=== PATIENT | female | born 1990 | race Caucasian/White ===

== ENCOUNTER 2021-07-19 20:05 | Outpatient (CLI) | payer OTHER, SELFPAY ==
[2021-07-19 20:05] VITALS: RESP 16; BMI 37.0
[2021-07-19 20:17] VITALS: BP 132/77; PULSE 80
[2021-07-19 20:32] VITALS: BP 118/72; PULSE 98
[2021-07-19 20:47] VITALS: BP 108/62; PULSE 93
== END 2021-07-19 21:00 | disposition home or self-care (01) ==
LOC: OPOB 20:13 → OBGYN 20:15
PROVIDERS: Visit Provider Family Medicine
DX: O26.899 Other specified pregnancy related conditions, unspecified trimester (principal); Z3A.00 Weeks of gestation of pregnancy not specified
CPT/HCPCS: 59025

== ENCOUNTER 2021-07-23 12:16 | Inpatient (IN) | payer OTHER, SELFPAY ==
[2021-07-22] VITALS (42 sets, daily range): BP systolic 101–146; BP diastolic 55–96; PULSE 64–113; RESP 18–20; TEMP 36.6–36.9; O2SAT 97–100; BMI 37.9
[2021-07-22] MEDS: dextrose 5%-lactated ringers 1,000 ML 125 ML IV (15:31)
[2021-07-22] MEDS: oxytocin 30 UNIT/500 ML BAG IV (15:31)
[2021-07-22 15:45] LABS: Basophils % 0.2 %; Eosinophils # 0.1 10^3/uL (0.0-0.8); Eosinophils % 0.9 %; Hematocrit 34.6 % (37.0-47.0); Hemoglobin 11.7 g/dL (11.5-15.3); Lymphocytes # 1.5 10^3/uL (0.8-4.8); Lymphocytes % 11.3 %; Mean Corpuscular HGB Conc 33.8 g/dL (30.0-36.0); Mean Corpuscular Hemoglobin 30.7 pg (28.0-34.0); Mean Corpuscular Volume 90.8 fl (81-99); Mean Platelet Volume 10.9 fL (7.4-10.4); Monocytes % 7.4 %; Neutrophils # 10.02 10^3/uL (1.8-7.7); Neutrophils % 77.9 %; Nucleated Red Blood Cells % 0 %; Platelet Count 233 10^3/cmm (130-400); Red Blood Count 3.81 10^6/uL (4.1-5.3); Red Cell Distribution Width 13.2 % (12.1-15.1); White Blood Count 12.9 10^3/uL (4.0-10.0)
[2021-07-22] MEDS: lactated ringers 1,000 ML 999 ML IV ×2 (18:21→19:33)
--- NOTE | 2021-07-22 18:25 | ANES.PREANE2 ---
Pre-Anesthetic Assessment Height/Weight: Height 1.63 m Weight 100.244 kg Temp Pulse Resp BP 97.9 F 72 20 H 113/64 07/22/21 15:35 07/22/21 18:07 07/22/21 14:56 07/22/21 18:07 Preop Diagnosis: labor pain epidural Was Beta Cody taken within 24 hours: N/A Was Clonidine taken within 24 hours: N/A Social No alcohol and No tobacco Exam alert, oriented x 3, clear to auscultation bilaterally and regular rate & rhythm Airway Submandibular: within normal limits Cervical ROM: within normal limits Mallampati: Class II Dentition: full Pulmonary None reported CV/HEM None reported None reported Hepatic None reported GI None reported Metabolic None reported Musc/skel None reported Neuropsych None reported Anesthetic Plan ASA status: 2 Anesthesia: Regional (specify below) Risk of > 500 ml blood loss (7ml/kg in children): No Medications/Allergies Home Medications Medication Instructions Recorded Confirmed Last Taken Type vit no.133-ferrous tab PO 07/22/21 07/22/21 08:00 History fumarate 28 mg-folic acid 800 mcg tablet () Allergies Allergy/AdvReac Type Severity Reaction Status Date / Time No Known Allergies Allergy Verified 07/22/21 15:32 Current Medications Generic Name Dose Route Start Last Admin Trade Name Freq PRN Reason Stop Dose Admin Oxytocin 30 unit in 500 mls @ 1 mls/hr 07/22/21 15:00 07/22/21 17:46 Pitocin IV 20 milliunit/min .Q24H JESUS 20 mls/hr Titration Protocol 1 MILLIUNIT/MIN Dextrose/Lactated Ringer's 1,000 mls @ 125 mls/hr 07/22/21 15:00 07/22/21 15:31 Dextrose 5%-Lactated Ringers IV 125 mls/hr .Q8H JESUS Administration Ropivacaine 200 mg in 100 mls @ 13 mls/hr 07/22/21 17:45 07/22/21 18:21 Naropin Premix EPIDURAL 13 mls/hr .Q7H42M JESUS Administration Lactated Ringer's 1,000 mls @ 999 mls/hr 07/22/21 17:45 07/22/21 18:21 Lactated Ringers IV 999 mls/hr .Q1H1M PRN Administration See label comments PFSH Anesthesia Female Reproductive History : 2 Data Anesthesia : 07/22/21 15:20 Short CBC 07/22/21 Range/Units 15:20 WBC 12.9 H (4.0-10.0) 10^3/uL Hgb 11.7 (11.5-15.3) g/dL Hct 34.6 L (37.0-47.0) % MCV 90.8 (81-99) fl Plt Count 233 (130-400) 10^3/cmm Neut % (Auto) 77.9 % Neut # (Auto) 10.02 H (1.8-7.7) 10^3/uL Cardiac Studies: No Data to Display
--- NOTE | 2021-07-22 19:16 | P.ANES_ITS ---
Anesthesia Procedures Procedure/Date: 07/22/21 epidural Procedure Narrative: Initial epidural did show signs on blood in tubing when inserted. confirmed intravascular with test dose. epidural removed and another attempt was made at 1 level above initial atrempt. epidural complete, bolus given, epidural pump initiated with BUSINESS REPORTING DEVELOPER education given, vitals taken during procedure using OBIX system and satisfactory throughout, patient admits to decrease pain, report of procedure to OB RN Epidural: Time Out Performed: Yes Consents Signed: Procedure Consent Consent: requested by attending/covering physician, from patient, risks and benefits reviewed and patient agrees to proceed Lumbar Level: L2-L3 Epidural position: sitting Epidural procedure: sterile prep of area, 1% lidocaine to numb the area (6 mL), 18 g needle, negative for paresthesia passed, neg for paresthesia, test dose given, 1.5% xylocaine 1:200k epi (7 mL), 0.2% Ropivacaine bolus ml (5 mL), placed PCEA, no systemic response, sterile dressing applied, L.U.D. no apparent complications and 0.2% Ropiavacaine @ mls/hr (13 mL/hr)
[2021-07-22] MEDS: dextrose 5%-lactated ringers 1,000 ML 105 ML IV (20:06)
[2021-07-23] VITALS (72 sets, daily range): BP systolic 94–146; BP diastolic 52–84; PULSE 66–113; RESP 16; TEMP 35.8–36.9; O2SAT 97–98
[2021-07-23] MEDS: dextrose 5%-lactated ringers 1,000 ML 999 ML IV (04:28)
--- NOTE | 2021-07-23 10:38 | PM.OPHPUD ---
Labor & Delivery H&P Update Date of Procedure: July 23, 2021 Date H&P Performed: 07/18/21 Admission Diagnosis: at 39 w 2d gestation induced hypertension, late onset Preop diagnosis: labor pain Other information: This is a 30-year-old G2, P1 at 39 weeks 2 days gestation who was admitted for induction secondary to elevated blood pressure. She was seen in the office for routine follow-up earlier this week and was noted to have repeat blood pressures of 150/90. Since she was already term, decision was made to go ahead and proceed with induction. Her induction was initially delayed due to staffing shortages. Her NST was reactive and her blood pressures on labor and delivery were less than 140/90 so she was sent home to await availability. Then there was an inclement weather delay due to ice. Her cervix was favorable for induction so she was started on high-dose Pitocin. Expectant management.
--- NOTE | 2021-07-23 10:43 | P.PN_ITS ---
CIVIL DIVISION COMMANDER DEPUTY SHERIFF Subjective Subjective: Interval history: This is a 30-year-old G2, P1 at 39 weeks 3 days gestation who is here for induction secondary to -induced hypertension. Her highest pressure here has been 146/77. She has not required antihypertensives. Her labor has progressed a little slowly. She is on 30 units of Pitocin and her contractions palpate only mild. Hopefully with her membranes ruptured things will begin to fish bait picker. She has been comfortable with an epidural. Labor: Station: -2 Amniotic Membrane Status: Intact Monitor Mode: External Contraction Pattern: Irregular Status: Category I Vitals/I&O/Wt Last Vital Signs Temp 97.5 F L 07/23/21 06:22 Pulse 99 07/23/21 10:34 Resp 20 H 07/22/21 14:56 BP 126/63 07/23/21 10:34 Pulse Ox 98 07/22/21 19:49 07/22/21 07/23/21 07/23/21 22:59 06:59 14:59 Intake Total 2161.550 / 2161.550 1481.783 / 3643.333 Output Total 1400 / 1400 Balance 2161.550 / 2161.550 81.783 / 2243.333 Weight last 48 hrs Weight 100.244 kg Weight 100.244 kg Physical Exam Narrative: Sitting up in bed pupils equal round reactive to light, extraocular movements intact, abdomen soft nontender, generalized edema, cervix 7 cm/75% effaced -2 station. Artificial rupture of membranes was easily performed digitally with a copious amount of clear fluid. heart tones were reassuring. Urinary Catheter Management: Hairston: Cath Placed During This Visit: yes Reason for Continuing Indwelling Catheter: Required Immobilization for Trauma or Surgery or Anesthesia Urinary Catheter Date of Insertion: 07/22/21 Urinary Catheter Time of Insertion: 19:15 Data : 07/22/21 15:20 A&P Assessment and plan (1) -induced hypertension in third trimester: Status: Acute (2) Active labor at term: Continue expectant management Status: Acute Attestations Medical Necessity Statement*: Expectant management of active labor and delivery Coding Level of Care Code Acute Superintendent Construction for Agnes Kessler Diagnoses -induced hypertension in third trimester O13.3 Active labor at term
[2021-07-23] MEDS: oxytocin 30 UNIT/500 ML BAG 600 UNIT IV (15:07)
[2021-07-23] MEDS: miSOPROStol 200 mcg Tablet 800 MCG PR (15:07)
--- NOTE | 2021-07-23 15:34 | P.PCNOB_ITS ---
Delivery Note: Date of delivery: July 23, 2021 Delivery: This is a 30 at 39 weeks 2 days gestation who presented for induction secondary to -induced hypertension. Her cervix was favorable and she was started on Pitocin. She received an epidural for pain management. Despite 30 units of Pitocin and multiple position changes, the infant remained ballotable overnight. Rupture of membranes was performed when she was 7 cm and - 2 station. A copious amount of clear fluid resulted. She then progressed quickly and had a normal spontaneous vaginal delivery of a viable female weight 3550 g, 7 pounds 14 ounces over an intact perineum. The infant was suctioned at delivery and placed on the mother's chest. The cord was clamped and cut. The placenta was delivered grossly intact and normal to inspection. There was a significant amount of uterine bleeding so mother was given 800 mcg of Cytotec rectally. She responded well to fundal pressure and Cytotec. She had a second-degree perineal laceration that was sutured using 3-0 chromic. Mother and infant were doing well after delivery. Note: Not long before delivery nursing went to check the patient and found her fully inflated Hairston bulb laying in the bed. At the time of delivery there was no active urethral bleeding. The periurethral tissue was very edematous and purple. Clear urine was expressed with just delivery of the placenta. When pt was receiving fundal massage, and at least 150 ML of clear urine was expressed. A&P Assessment and plan (1) (normal spontaneous vaginal delivery): Routine care Status: Acute (2) -induced hypertension in third trimester: Status: Acute (3) Trauma of urethra: Monitor urine output Status: Acute Coding Level of Care Code Acute Hearing Aid Consultant for Chg Fwd Diagnoses (normal spontaneous vaginal delivery) O80 -induced hypertension in third trimester O13.3 Trauma of urethra S37.30XA
[2021-07-23] MEDS: benzocaine-menthol 78 gm Canister 1 SPRAY TOPICAL (20:54)
[2021-07-23] MEDS: ibuprofen 800 mg tablet PO (20:54)
[2021-07-23] MEDS: docusate sodium 100 mg Capsule PO (20:54)
[2021-07-23] MEDS: acetaminophen 325 mg Tablet 650 MG PO (23:01)
[2021-07-24 00:30] VITALS: BP 109/70; PULSE 75; TEMP 36.7; O2SAT 98
[2021-07-24 04:10] LABS: Hematocrit 28.5 % (37.0-47.0); Hemoglobin 9.6 g/dL (11.5-15.3); Mean Corpuscular HGB Conc 33.7 g/dL (30.0-36.0); Mean Corpuscular Hemoglobin 30.8 pg (28.0-34.0); Mean Corpuscular Volume 91.3 fl (81-99); Mean Platelet Volume 10.7 fL (7.4-10.4); Platelet Count 202 10^3/cmm (130-400); Red Blood Count 3.12 10^6/uL (4.1-5.3); Red Cell Distribution Width 13.2 % (12.1-15.1); White Blood Count 18.1 10^3/uL (4.0-10.0)
[2021-07-24 04:58] VITALS: BP 116/63; PULSE 68; TEMP 36.7; O2SAT 97
[2021-07-24] MEDS: ibuprofen 800 mg tablet PO ×2 (09:34→15:13)
[2021-07-24] MEDS: docusate sodium 100 mg Capsule PO (09:35)
[2021-07-24 09:50] VITALS: BP 121/71; PULSE 88; RESP 18; TEMP 36.3; O2SAT 96
--- NOTE | 2021-07-24 14:30 | PM.DCS ---
Discharge Providers Date of Admission: 07/23/21 12:16 Date of Discharge: July 24, 2021 Attending Provider at Admission: Michelle Mcguire MD Attending Provider at Discharge: Michelle Mcguire MD Diagnoses at Discharge Discharge Diagnosis (1) (normal spontaneous vaginal delivery): Status: Acute (2) -induced hypertension in third trimester: Status: Acute (3) Trauma of urethra: Status: Acute Reason for Visit Reason for Visit: Induction Hospital Course Hospital Course This is a 30-year-old G2 now P2 who was admitted for induction secondary to -induced hypertension. She had a normal spontaneous vaginal delivery of a viable female . She had some urethral trauma since the Hairston bulb was pushed out by the 's head descending (this was prior to pushing). Her urine output was monitored and was excellent. She did well and on day #1 she was ambulating, tolerating a regular diet, had no pain and was comfortable with discharge home. Physical Exam Narrative: Alert and oriented, sitting in bed breast-feeding, pupils equal round reactive to light, extraocular movements intact, heart regular rate and rhythm, lungs clear to auscultation bilaterally, abdomen soft and nontender, extremities have 1+ edema but no calf tenderness. Urinary Catheter Management: Hairston: Cath Placed During This Visit: yes, but has since been removed by the nurse Reason for Continuing Indwelling Catheter: Decision to DC Catheter Urinary Catheter Date of Insertion: 07/22/21 Urinary Catheter Time of Insertion: 19:15 Date Urinary Catheter Removed: 07/23/21 Time Urinary Catheter Discontinued: 13:30 Discharge Data Studies Completed and Pending Laboratory Results WBC 18.1 10^3/uL (4.0-10.0) H 07/24/21 04:00 RBC 3.12 10^6/uL (4.1-5.3) L 07/24/21 04:00 Hgb 9.6 g/dL (11.5-15.3) L 07/24/21 04:00 Hct 28.5 % (37.0-47.0) L 07/24/21 04:00 MCV 91.3 fl (81-99) 07/24/21 04:00 MCH 30.8 pg (28.0-34.0) 07/24/21 04:00 MCHC 33.7 g/dL (30.0-36.0) 07/24/21 04:00 RDW 13.2 % (12.1-15.1) 07/24/21 04:00 Plt Count 202 10^3/cmm (130-400) 07/24/21 04:00 MPV 10.7 fL (7.4-10.4) H 07/24/21 04:00 Neut % (Auto) 77.9 % 07/22/21 15:20 Lymph % (Auto) 11.3 % 07/22/21 15:20 Hemphill % (Auto) 7.4 % 07/22/21 15:20 Eos % (Auto) 0.9 % 07/22/21 15:20 Baso % (Auto) 0.2 % 07/22/21 15:20 Neut # (Auto) 10.02 10^3/uL (1.8-7.7) H 07/22/21 15:20 Lymph # (Auto) 1.5 10^3/uL (0.8-4.8) 07/22/21 15:20 Hemphill # (Auto) 1.0 10^3/uL (0.2-0.9) H 07/22/21 15:20 Eos # (Auto) 0.1 10^3/uL (0.0-0.8) 07/22/21 15:20 Baso # (Auto) 0.0 10^3/uL (0.0-0.1) 07/22/21 15:20 Nucleated RBC % (auto) 0 % 07/22/21 15:20 Nucleated RBCs # 0.0 /100WBC 07/22/21 15:20 Vitals Last Vital Signs Temp 97.4 F L 07/24/21 09:50 Pulse 88 07/24/21 09:50 Resp 18 07/24/21 09:50 BP 121/71 07/24/21 09:50 Pulse Ox 96 07/24/21 09:50 Discharge Plan Discharge Patient Disposition: Home Condition: Stable Prescriptions: Continued 28-800 mg-mcg Tablet PO 0RF Discharge Orders: Discharge Order (Routine); Ordered 07/24/21 Ordered By: Michelle Mcguire Discharge Diet: Usual diet Discharge Activity: Limit activity as instructed Patient Instructions: Opioid Safety Discharge Attestations Time Spent in Discharge Care*: less than 30 min Quality Metrics Clinical Quality Measures [ No reported AMI, CVA or VTE this stay] Coding Level of Care Code Acute Chg FW DC note Diagnoses (normal spontaneous vaginal delivery) O80 -induced hypertension in third trimester O13.3 Trauma of urethra S37.30XA
[2021-07-24 15:48] VITALS: BP 133/70; PULSE 70; RESP 18; TEMP 36.8; O2SAT 98
--- NOTE | 2021-07-25 11:53 | ANE.PACU2 ---
Inpatient post-anesthesia follow up: Airway intact: Yes Vital signs: Temperature 98.3 F Pulse Rate 70 Respiratory Rate 18 Blood Pressure 133/70 Pulse Oximetry 98 Oxygen Delivery Me thod Room Air Oxygen Flow Rate Fraction of Inspir ed Oxygen Hydration adequate: Yes Nausea and vomiting: No Pain level: 2 Mental status: Baseline
== END 2021-07-24 17:45 | disposition home or self-care (01) | DRG 807 ==
LOC: OPOB 12:18 → OBGYN 12:18
PROVIDERS: Admitting Provider Family Medicine; Visit Provider Family Medicine
DX: O13.4 Gestational [pregnancy-induced] hypertension without significant proteinuria, complicating childbirth (principal); Z37.0 Single live birth; Z3A.39 39 weeks gestation of pregnancy; O71.82 Other specified trauma to perineum and vulva; O70.1 Second degree perineal laceration during delivery
CPT/HCPCS: 36415; 51702; 59025; 59409; 85025; 85027; 99211; J2795